=== PATIENT | male | born 1955 | race African-American/Black ===

== ENCOUNTER 2022-05-04 09:42 | Emergency (ER) | payer MEDICARE ==
[2022-05-04 10:26] LABS: #Eosinphils 0.1 10x3/uL (0.0-0.5); #Monocytes 0.6 10x3/uL (0.0-1.1); #Neutrophils 5.2 10x3/uL (1.5-8.4); %Basophils 0.4 % (0.0-2.0); %Eosinophils 1.6 % (0.0-6.0); %Lymphocytes 33.6 % (18.0-47.0); %Monocytes 6.8 % (0.0-10.0); %Neutrophils 57.4 % (40.0-75.0); Hemoglobin 14.1 g/dL (13.5-17.5); Mean Corpuscular HGB CONC 31.9 g/dL (32.0-36.0); Mean Corpuscular Hemoglobin 26.1 pg (27.0-33.0); Mean Corpuscular Volume 81.9 fl (81.2-95.1); Mean Platelet Volume 11.2 fl (7.4-10.4); Platelet Count 300 10x3/uL (150-450); RBC Distribution Width 17.3 % (11.5-14.5)
[2022-05-04 10:34] LABS: PTT 29.3 sec (22.0-33.0); Prothrombin Time 10.8 sec (9.5-12.1)
[2022-05-04 10:59] LABS: ALT (SGPT) 28 U/L (8-55); AST (SGOT) 26 U/L (5-34); Albumin 4.1 g/dL (3.4-4.8); Alkaline Phosphatase 69 U/L (40-110); Anion Gap 16 mmol/L (10-20); BUN (Urea Nitrogen) 17 mg/dL (8.4-25.7); Bilirubin, Total 0.3 mg/dL (0.2-1.2); Calc. Creatinine Clearance 0 mL/min (70-130); Calcium 9.6 mg/dL (7.8-10.44); Carbon Dioxide 25 mmol/L (23-31); Chloride 102 mmol/L (98-107); Globulin 3.7 g/dL (2.4-3.5); Glucose 168 mg/dL (80-115); Potassium 3.7 mmol/L (3.5-5.1); Protein, Total 7.8 g/dL (5.8-8.1); Sodium 139 mmol/L (136-145)
== END 2022-05-04 14:48 | disposition home or self-care (01) ==
LOC: CSHERS 09:42
DX: K92.2 Gastrointestinal hemorrhage, unspecified (principal); K21.9 Gastro-esophageal reflux disease without esophagitis; E78.5 Hyperlipidemia, unspecified; I10 Essential (primary) hypertension; Z87.891 Personal history of nicotine dependence
CPT/HCPCS: 80053; 82274; 85025; 85610; 85730; 86850; 86900; 86901; 99284

== ENCOUNTER 2022-07-17 01:07 | Inpatient (IN) | payer OTHER ==
[2022-07-17 01:17] VITALS: BMI 44.6
[2022-07-17] MEDS ORDERED: Lactated Ringer's 1,000 ML IV SCH (01:45)
[2022-07-17] MEDS: Ondansetron PF 4 MG/2 ML Vial IVP PRN ×2 (10:17→16:32)
[2022-07-17] MEDS ORDERED: hydrALAZINE 20 MG/ML VIAL SLOW IVP PRN (15:06)
[2022-07-17] MEDS: Lactated Ringer's 1,000 ML IV SCH (16:32)
[2022-07-17] MEDS ORDERED: Enoxaparin Sodium 40 MG/0.4 ML SYRINGE SC SCH (21:00)
[2022-07-17] MEDS: Famotidine/PF 20 mg/2ml Vial SLOW IVP SCH (21:25)
[2022-07-17] MEDS: Hydrochlorothiazide 25 MG TAB PO SCH (21:26)
[2022-07-18] MEDS: Lactated Ringer's 1,000 ML IV SCH ×2 (00:08→09:47)
[2022-07-18 06:36] LABS: #Eosinphils 0.1 10x3/uL (0.0-0.5); #Monocytes 1.6 10x3/uL (0.0-1.1); #Neutrophils 4.7 10x3/uL (1.5-8.4); %Basophils 0.4 % (0.0-2.0); %Eosinophils 0.7 % (0.0-6.0); %Lymphocytes 29.2 % (18.0-47.0); %Monocytes 17.3 % (0.0-10.0); %Neutrophils 52.2 % (40.0-75.0); Hemoglobin 14.7 g/dL (13.5-17.5); Mean Corpuscular HGB CONC 32.6 g/dL (32.0-36.0); Mean Corpuscular Hemoglobin 27.4 pg (27.0-33.0); Platelet Count 269 10x3/uL (150-450); RBC Distribution Width 17.2 % (11.5-14.5); Red Blood Cell (RBC) Count 5.37 10x6/uL (4.32-5.72); White Blood Cell (WBC) Count 9.1 10x3/uL (3.5-10.5)
[2022-07-18 06:37] LABS: Anion Gap 15 mmol/L (10-20); BUN (Urea Nitrogen) 32 mg/dL (8.4-25.7); Calc. Creatinine Clearance 81 mL/min (70-130); Calcium 9.5 mg/dL (7.8-10.44); Carbon Dioxide 32 mmol/L (23-31); Chloride 100 mmol/L (98-107); Estimated GFR 49; Glucose 125 mg/dL (80-115); Potassium 3.8 mmol/L (3.5-5.1); Sodium 143 mmol/L (136-145)
[2022-07-18] MEDS ORDERED: CEFAZOLIN 2 GM in Sodium Chloride 0.9% 100 ML IVPB SCH (08:45)
[2022-07-18] MEDS ORDERED: EPINEPHrine 1 MG/ML AMP ONE (10:30)
[2022-07-18] MEDS ORDERED: Bupivacaine PF 0.5% 30 ML VIAL ONE (10:30)
[2022-07-18] MEDS ORDERED: CEFAZOLIN 2 GM VIAL ONE (10:43)
[2022-07-18] MEDS ORDERED: HYDROcodone/Acetaminophen 7.5/325 mg Tablet PO PRN ×2 (11:50)
[2022-07-18] MEDS ORDERED: Morphine 4 MG/ML VIAL SLOW IVP PRN (11:50)
[2022-07-18] MEDS ORDERED: Morphine 2 MG/ML VIAL SLOW IVP PRN (12:14)
[2022-07-18] MEDS ORDERED: Fentanyl 100 MCG/2 ML VIAL ONE (12:20)
[2022-07-18] MEDS: Famotidine/PF 20 mg/2ml Vial SLOW IVP SCH (15:41)
[2022-07-18] MEDS: Amlodipine 5 MG TAB PO SCH (16:24)
[2022-07-18] MEDS: CEFAZOLIN 2 GM in Sodium Chloride 0.9% 100 ML IVPB SCH (18:10)
[2022-07-18] MEDS: Cepastat Lozenges 1 LOZ PO PRN ×2 (20:44→23:38)
[2022-07-18] MEDS: Hydrochlorothiazide 25 MG TAB PO SCH (20:44)
[2022-07-18] MEDS: D5 1/2 NS w/20 mEq KCL 1,000 ML IV SCH ×2 (20:46→21:10)
[2022-07-19] MEDS: CEFAZOLIN 2 GM in Sodium Chloride 0.9% 100 ML IVPB SCH ×2 (01:37→09:37)
[2022-07-19 05:29] LABS: Hemoglobin 13.6 g/dL (13.5-17.5); Mean Corpuscular HGB CONC 32.5 g/dL (32.0-36.0); Mean Corpuscular Hemoglobin 26.8 pg (27.0-33.0); Mean Corpuscular Volume 82.6 fl (81.2-95.1); Mean Platelet Volume 11.3 fl (7.4-10.4); Platelet Count 266 10x3/uL (150-450); RBC Distribution Width 16.7 % (11.5-14.5); Red Blood Cell (RBC) Count 5.07 10x6/uL (4.32-5.72)
[2022-07-19 05:35] LABS: Anion Gap 16 mmol/L (10-20); BUN (Urea Nitrogen) 21 mg/dL (8.4-25.7); Calc. Creatinine Clearance 101 mL/min (70-130); Calcium 8.9 mg/dL (7.8-10.44); Carbon Dioxide 27 mmol/L (23-31); Chloride 99 mmol/L (98-107); Estimated GFR 64; Glucose 125 mg/dL (80-115); Potassium 3.8 mmol/L (3.5-5.1); Sodium 138 mmol/L (136-145)
[2022-07-19 06:21] LABS: MDiff Complete? YES
[2022-07-19 06:49] LABS: Lymphocytes 16 % (21-51); Monocytes 22 % (0-10); Neutrophil 62 % (42-75)
[2022-07-19 06:51] LABS: Diff Comment (RBC Morph SCRN) NORMAL; Platelet Morphology Comment Appears Adequate
[2022-07-19] MEDS ORDERED: Pantoprazole 40 MG VIAL IVP SCH (09:00)
[2022-07-19] MEDS ORDERED: Enoxaparin Sodium 40 MG/0.4 ML SYRINGE SC SCH (09:00)
[2022-07-19] MEDS: D5 1/2 NS w/20 mEq KCL 1,000 ML IV SCH (09:37)
[2022-07-19] MEDS: Amlodipine 5 MG TAB PO SCH (09:37)
[2022-07-19 13:58] VITALS: BP 138/68; TEMP 97.7
== END 2022-07-19 15:40 | disposition home or self-care (01) | DRG 354 ==
LOC: CSHTELE 01:07 → UNDOADMOB 01:07 → CSHTELE 08:15 → OBSVTOIN 07-18 11:49
PROVIDERS: ADMIT Surgery; ATTEND Surgery
PROC: 0WUF0JZ Supplement Abdominal Wall with Synthetic Substitute, Open Approach (ICD-10-PCS; principal; 2022-07-18)
DX: K43.6 Other and unspecified ventral hernia with obstruction, without gangrene (principal); C18.7 Malignant neoplasm of sigmoid colon; Z68.41 Body mass index [BMI] 40.0-44.9, adult; I10 Essential (primary) hypertension; E78.5 Hyperlipidemia, unspecified; I25.10 Atherosclerotic heart disease of native coronary artery without angina pectoris; E66.01 Morbid (severe) obesity due to excess calories; E86.0 Dehydration; I73.9 Peripheral vascular disease, unspecified; Z20.822 Contact with and (suspected) exposure to COVID-19; G47.30 Sleep apnea, unspecified; Z90.49 Acquired absence of other specified parts of digestive tract; Z98.890 Other specified postprocedural states; Z88.8 Allergy status to other drugs, medicaments and biological substances; Z79.899 Other long term (current) drug therapy; Z79.84 Long term (current) use of oral hypoglycemic drugs
CPT/HCPCS: 36415; 74018; 80048; 85025; 93005; 93010; 96372; 96374; 96375; 96376; C1781; G0378; J0171; J0690; J1650; J2270; J2405; J3010; J3480; J3490; J7120; S0020; S0028